=== PATIENT | female | born 1945 | race Caucasian/White ===

== ENCOUNTER 2017-04-01 09:30 | Inpatient (IN) | payer MEDICARE, OTHER ==
--- NOTE | ~2017-04-01 | CO ---
Unit #: [id number] #: [id number] Patient: YOLA FELIPE [id number] [address] [place], [place] [address] [id number] MR#: [id number] NAME: YOLA FELIPE ROOM: [facility] Age: 72 Sex: F Admission Date: 04/01/2017 : 1945 Attending Physician: Jeff Hamilton M.D. Primary Care Physician: Suhas Lopez M.D. Consultation Date: 04/01/2017 CONSULTATION REPORT REASON FOR CONSULTATION COPD. HISTORY OF PRESENT ILLNESS A 72-year-old female, well known to me, who has advanced emphysema, chronic respiratory failure, and problems with mucus plugs. She has undergone multiple bronchoscopies last in 10/2016, which revealed MRSA. She was doing relatively well until approximately 2 or 3 weeks ago. She presented to her primary physician's office, treated appropriately with antibiotics and steroids, but failed to improve. Then, went to [facility], records are unavailable, and again was treated with steroids and antibiotics. It appears that she was treated with Keflex. She again failed to improve room and because multiple outpatient failures, she was admitted to the hospital. She did have mucopurulent sputum, but now she says "I can't get it up." She has had wheezing, shortness of breath. She denies chest pain or hemoptysis or fever. PAST MEDICAL HISTORY As above and chronic respiratory failure, COPD, coronary artery disease, anxiety, depression, diabetes, hypothyroidism. MEDICATIONS At home, she is on Symbicort two puffs b.i.d., Spiriva one capsule inhaled daily, and albuterol as needed. Other medications per med rec sheet include MiraLAX p.r.n.; Daliresp; although, it is unclear if she is taking that or not; Desyrel; nystatin; Glucophage; Flonase; hydrocodone; Claritin; Symbicort. ALLERGIES No known medical allergies. SOCIAL HISTORY She is a reformed tobacco user. FAMILY HISTORY No familial lung disease. REVIEW OF SYSTEMS No chest pain or palpitations. She has chronic abdominal discomfort. She says "I am old." No nausea, vomiting, diarrhea. No trouble swallowing. No hematuria, dysuria. No focal weakness or paresthesias. No leg pain or swelling. No fever, chills, or weight loss. Further review of systems negative. Unit #: [id number] #: [id number] Patient: YOLA FELIPE PHYSICAL EXAMINATION VITAL SIGNS: Reveals the patient, who is afebrile. Pulse 76, respiratory rate is 20, blood pressure is 135/79. She is 5 feet 5 inches, 136 pounds. HEENT: Pupils are equal, round, and reactive to light. Sclerae anicteric. Head atraumatic. NECK: Supple. No supraclavicular or cervical adenopathy appreciated. Mucous membranes moist. Mallampati class IV oropharynx. She has dentures in place. CHEST: Decreased breath sounds. Prolonged expiratory phase. Rare wheeze. No consolidation. CARDIAC: Reveals distant heart tones. Regular rate and rhythm. No murmur, rub, or gallop. ABDOMEN: Soft and nontender. No hepatomegaly or rebound. EXTREMITIES: Reveal no clubbing, cyanosis, or edema. No calf tenderness. SKIN: Multiple bruises in a nondiagnostic pattern. No acute rash. DIAGNOSTIC STUDIES IMAGING STUDIES: Chest x-ray; hyperinflation. CT scan; emphysema, some right lower lobe bronchiectasis. No acute changes otherwise. LABORATORY RESULTS: Her glucose is 363, BUN is 24, creatinine 0.7. White blood cell count 10.7, hemoglobin 13, platelet count 166. No eosinophilia. Blood cultures performed and are pending. Sputum from bronchoscopy; MRSA sensitive to vancomycin, doxycycline, and Bactrim. CARDIOVASCULAR STUDIES: EKG; sinus rhythm, some baseline artifact. I do not see any definite acute ischemic changes. IMPRESSION 1. Acute exacerbation of chronic obstructive pulmonary disease. Failed multiple outpatient treatments, suspect underlying methicillin-resistant Staphylococcus aureus bronchitis. 2. Bronchiectasis of right lower lobe, appear stable. 3. Chronic respiratory failure. 4. Coronary artery disease, diabetes, hypothyroidism, etc. PLAN IV steroids, but we will trial most effective dose given her diabetes and hyperglycemia. Antibiotics for methicillin-resistant Staphylococcus aureus. If responds, consider transition to either doxycycline or Bactrim. Nebulized bronchodilators, oxygen, and we will try a percussive Vest. Thank you very much for allowing me to participate in the care of Ms. Felipe. Dictated by... Mayur Deluna/benji TD: 04/02/2017 01:59 JOB #: [id number] Unit #: [id number] #: [id number] Patient: YOLA FELIPE CONSULTATION REPORT Page 1 of 1 X Prem Bailey MD CONSULTATION REPORT
--- NOTE | ~2017-04-01 | DS ---
Unit #: [id number] #: [id number] Patient: YOLA FELIPE [id number] [facility]. [place], [place] [address] [id number] I MR#: [id number] NAME: YOLA FELIPE ROOM: 305 Age: 72 Sex: F Admission Date: 04/01/2017 : 1945 Discharge Date: 04/04/2017 Attending Physician: Jeff Hamilton M.D. Primary Care Physician: Suhas Lopez M.D. DISCHARGE SUMMARY REASON FOR ADMISSION Acute hypoxic respiratory failure, chronic obstructive pulmonary disease exacerbation. HISTORY OF PRESENT ILLNESS/HOSPITAL COURSE Please see history and physical for complete details of initial part of hospital stay. The patient was seen outside the facility and noted to have acute hypoxic respiratory failure secondary to chronic obstructive pulmonary disease exacerbation and was subsequently transferred to [facility] for ongoing evaluation. Consultation was placed with Dr. Bailey of pulmonary services. The patient underwent a CT scan without contrast on 03/31/2017 for consideration of possible underlying pneumonia. His initial chest x-ray raised that possibility at outside facility. There was moderately severe bilateral emphysema which was noted but there was no acute or active disease which was noted. She was appropriately placed on IV Solu-Medrol aerosols, antibiotics, per the discretion of pulmonary services. Blood cultures did not yield any acute bacteria growth. MRSA nasal swab was positive. Today, at the time of discharge, the patient's creatinine 0.8, hemoglobin 12.9. She appears close to her baseline. She does have end-stage chronic obstructive pulmonary disease and is currently maintained on two liters while at home. She was instructed to follow up with Dr. Bailey as an outpatient in approximately one-to-two weeks. It should be noted that her hemoglobin A1c was 8.3 through this hospital course and secondary to elevated blood sugars from Solu-Medrol. She was maintained on appropriate sliding scale. FINAL DISCHARGE DIAGNOSES 1. Acute hypoxic respiratory failure. 2. Acute exacerbation of chronic obstructive pulmonary disease. 3. Imgfgxzp-jo-ncfpar emphysema. 4. End-stage chronic obstructive pulmonary disease on home O2 at two liters. Unit #: [id number] #: [id number] Patient: MATTEO,ZEFFA 5. Chronic pain syndrome. 6. Generalized anxiety disorder. 7. Prior history of back surgery x5 with resulting chronic pain syndrome. 8. Failure to thrive. 9. Coronary artery disease. 10. Diabetes, poorly controlled. 11. Hyperlipidemia. 12. Hypertension. 13. Hypothyroidism. 14. Allergic rhinitis. FINAL DISCHARGE MEDICATIONS 1. Proventil inhalation solution q.6h p.r.n. 2. Symbicort 160/4.5 two puffs b.i.d. 3. Prednisone 40 mg p.o. q.a.m. x4 days 4. Doxycycline 100 mg one tablet p.o. b.i.d. x5 days 5. Gentamicin eye drops q.6h as directed 6. Flonase 1-2 squirts each nostril daily 7. Spiriva one inhalation daily 8. Trazodone 100 mg p.o. q.h.s. 9. Glucophage 500 mg p.o. b.i.d. 10. Nystatin 5 mL p.o. q.6 p.r.n. 11. Claritin 10 mg p.o. daily 12. MiraLAX 17 grams daily 13. Printer 5/825 one tablet p.o. q.6 p.r.n. (this is a home medication no new prescription given) 14. Daliresp 500 mcg p.o. daily DISCHARGE CONDITION Stable. DISCHARGE DISPOSITION Home. FOLLOWUP 1. Follow up with Dr. Kearney in one-to-two weeks. 2. Follow up with primary care physician in epgeh-qu-cjz days. Dictated by... Mayur Mercado/ash TD: 04/04/2017 11:27 JOB #: [id number] DISCHARGE SUMMARY Page 1 of 1 X Jeff Hamilton MD X DISCHARGE SUMMARY
--- NOTE | ~2017-04-01 | CT57 ---
[facility] A Service of [facility] RADIOLOGY TEXT RESULTS PATIENT: YOLA FELIPE LOCATION: [facility] - : [birth year] UNIT #: [id number] AGE: [address]: Garrison Lemus MD SEX: F ORDER DR: [id number] [facility]. [place], [place] [address] [id number] I MR#: [id number] Acc #: [id number] NAME: YOLA FELIPE : 1945 SEX: F STUDY DATE/TIME: 03/31/2017 20:45 UNIT: [address] ROOM: [facility] STUDY DESCRIPTION: CT Chest Wo Cont Attending Physician: Garrison Lemus M.D. Ordering Physician: Garrison Lemus M.D. Primary Care Physician: Suhas Lopez M.D. MEDICAL IMAGING REPORT This report is preliminary unless electronic signature is present EXAM CT chest without contrast HISTORY COPD and shortness of air for 2 days. Respiratory failure. This CT exam was performed with one or more of the following radiation dose reduction techniques: automatic exposure control, adjustment of mA and/or kV according to patient size, and iterative reconstruction. FINDINGS CT chest without contrast demonstrates moderately severe bilateral emphysema. A 1.5 cm lung cyst in the right apex. Scattered linear fibrotic scarring in both lungs. Mild bronchiectasis in the posterior and inferior right lower lobe. No airspace infiltrates. No pleural effusions. No adenopathy. Normal caliber thoracic aorta. IMPRESSION 1. Moderately severe bilateral emphysema. 2. No evidence of active disease. 3. Scattered linear fibrotic scarring in both lungs, greater in the right lower lobe and mild bronchiectasis in the right lower lobe. Dictated by... Petar Collado M.D. THIS IS AN ELECTRONICALLY VERIFIED REPORT Petar Collado M.D. at 04/01/2017 1:58 PM DAR/dale TD: 04/01/2017 05:01 [facility] A Service of [facility] RADIOLOGY TEXT RESULTS PATIENT: YOLA FELIPE LOCATION: [facility] 305-01 : [birth year] UNIT #: [id number] AGE: [address]: Garrison Lemus MD SEX: F ORDER DR: ZEB #: [id number] MEDICAL IMAGING REPORT Page 1 of 1 COPY
--- NOTE | ~2017-04-01 | HP ---
Unit #: [id number] #: [id number] Patient: YOLA FELIPE [id number] [facility]. [place], [place] [address] [id number] I MR#: [id number] NAME: YOLA FELIPE ROOM: 305 Age: 72 Sex: F Admission Date: 04/01/2017 : 1945 Attending Physician: Garrison Lemus M.D. Primary Care Physician: Suhas Lopez M.D. HISTORY AND PHYSICAL REASON FOR ADMISSION Acute hypoxic respiratory failure. HISTORY OF PRESENT ILLNESS The patient is a very pleasant, 72-year-old female usually followed by Dr. Bailey of Pulmonary Services, who states that over the past seven days she has had progressive dyspnea as well as increased cough, congestion. She was seen and evaluated at [facility] as an outpatient, noted to have increased oxygen requirements as well as chest pressure. Therefore, she was transferred to [facility] for ongoing evaluation. At the present time, she is currently on approximately five liters. She states that she would like Dr. Bailey to come and evaluate her in regards to her overall respiratory status. PAST MEDICAL HISTORY COPD, quit smoking approximately 20 years ago after smoking approximately two packs of cigarettes per day, home O2 dependent at approximately two to three liters, chronic pain syndrome, generalized anxiety disorder, prior history of hysterectomy, appendectomy, prior history of back surgery x5, chronic pain syndrome, tonsillectomy, failure to thrive, chronic shoulder bursitis, coronary artery disease, details unclear, diabetes, emphysema, eustachian tube dysfunction, hyperlipidemia, hypertension, hypothyroidism, allergic rhinitis. PAST SURGICAL HISTORY Please see above. SOCIAL HISTORY Negative alcohol use. Negative tobacco use currently. Former reformed smoker, approximately two packs of cigarettes per day for approximately 40 years, a 80-pack year smoking history. No illicit drug use. FAMILY HISTORY Reviewed. Negative and noncontributory. REVIEW OF SYSTEMS Please see HPI. A 12-point otherwise negative except for those positive noted in the HPI. PHYSICAL EXAMINATION GENERAL APPEARANCE: The patient is alert, oriented, mildly using accessory muscles. VITAL SIGNS: Temperature at outlying facility 97.7. Pulse 109. Respiratory rate 22. Blood pressure currently being assessed, pending. Unit #: [id number] #: [id number] Patient: YOLA FELIPE SKIN: Warm dry. HEAD: Atraumatic, normocephalic. NECK: Supple. Mild accessory muscle use noted. No JVD. No carotid bruit. CARDIOVASCULAR: S1, S2 without murmur. Tachycardiac. RESPIRATORY: Coarse breath sounds are noted. Bilateral rhonchi. GASTROINTESTINAL/ABDOMEN: Nontender, nondistended. EXTREMITIES: Lower extremities have no evidence of lower extremity edema. NEUROLOGIC: Patient alert and oriented x3. No evidence of any focal neuro deficits. DIAGNOSTIC STUDIES LABORATORY: Initial laboratory studies at outside facility include a pH of 7.47, pO2 of 67, pCO2 of 32. BMP unremarkable. LFTs unremarkable. White count 16,000. INITIAL ADMISSION DIAGNOSES 1. Acute hypoxic respiratory failure. 2. COPD exacerbation. 3. End-stage COPD. 4. Remote history of tobacco abuse. 5. Leukocytosis. 6. Failure to thrive. 7. Remote history of coronary artery disease. Details unclear. PLAN Admission telemetry floor. Consultation will be placed to Pulmonary Services. IV Solu-Medrol. Aerosols. CT chest. Routine hospital course. We will begin checking routine Accu-Cheks q.a.c. and q.h.s. The patient states that she has been told in the past that she may have diabetes and that she currently takes Glucophage for but she is not sure if she is a true diabetic or not. She is FULL CODE. Plans have been reviewed with patient in detail. Dictated by Mayur Mercado/mervat TD: 04/01/2017 12:44 JOB #: [id number] HISTORY AND PHYSICAL Page 1 of 1 X Jeff Hamilton MD X HISTORY AND PHYSICAL
[2017-04-01 05:21] LABS: HEMATOCRIT 40.7 % (35.0-45.0); MEAN CELL VOLUME 95.2 FL (83-96); MEAN CORPUSCULAR HEMOGLOBIN 30.5 PG (28-34); MEAN PLATELET VOLUME 8.4 FL (6.5-11.5); RED BLOOD COUNT 4.27 X10e (3.90-5.30); RED CELL DISTRIBUTION WIDTH 14.1 % (11.0-15.5); WHITE BLOOD COUNT 10.7 X10e3 (4.0-10.5)
[2017-04-01 07:08] LABS: ALBUMIN SERUM 3.1 g/dL (3.5-5.0); BILIRUBIN,TOTAL 0.4 mg/dL (0.2-2.0); BUN/CREATININE RATIO 34.28; CALCIUM SERUM 8.7 mg/dL (8.4-10.2); CREATININE SERUM 0.7 mg/dL (0.6-1.4); GLOM FILT RATE Estimated 85.4 mL/min (>60); POTASSIUM 4.4 mmol/L (3.5-5.1); PROTEIN TOTAL SERUM 6.2 g/dL (6.0-8.3)
[~2017-04-01 09:30] MED LIST: ACETAMINOPHEN PO; ACTOS PO; ALBUTEROL 0.5ML INH; ALBUTEROL MININEB NEB; ALBUTEROL17 GM INH; ALBUTEROL2.5 MG/0.5 IH; ALPRAZOLAM ER1 MG PO; ALPRAZOLAM PO; ALPRAZOLAM0.5 MG PO; AMOXICILLIN500 M1 PO; AUGMENTIN PO; AZITHROMYCIN250 MG PO; CIPRO PO; CLARITIN10 M2 PO; CLARITIN10 M3 PO; COMBIVENT MININEB INH; DALIRESP500 MCG DOB; DALIRESP500 MCG PO; DELTASONE20 MG PO; DESYREL100 MG PO; DIFLUCAN100 MG PO; DOXYCYCLINE150 MG PO; DYAZIDE 37.5/251 CAP PO; ESTRACE PO; FLEXERIL10 MG PO; FLOMAX0.4 M1 DOB; FLOMAX0.4 M1 PO; FLONASE ALLERG9.9 ML; FLUOROMETHOLONE5 ML OU; GENTAK5 ML AU; GLUCOPHAGE500 MG PO; GLYBURIDE2.5 MG PO; GLYCOLAX119 GM PO; HYDROCODON-ACE1 EAC2 PO; HYDROCODON-ACE1 EAC7 PO; HYDROCODON-ACE1 EAC9 PO; HYDROCODONE-A1 UDTA4 PO; JANUVIA PO; JANUVIA100 MG PO; KEFLEX500 MG PO; LEVAQUIN PO; LEVAQUIN750 M1 PO; LEVAQUIN750 MG PO; LEVOFLOXACIN500 MG PO; LEVOTHROID100 MC1 PO; LEVOTHYROXINE100 MCG PO; LEVOXYL75 MC1 PO; LORATADINE PO; MACROBID 100 M100 MG PO; MACROBID100 MG PO; MOTRIN600 MG PO; NITROFURANTOIN100 M3 PO; NITROFURANTOIN100 M4 PO; NOVOLIN R100 UNITS/ INJ; NYSTATIN5 ML PO; OMNICEF300 MG PO; PHENERGAN PO; PHENERGAN25 MG PO; PREDNISONE PO; PREDNISONE10 MG PO; PROMETHAZI6.25 MG/5 PO; PROMETHAZINE HC25 MG PO; PROTONIX PO; PROVENTIL0.83 MG/ML INH; PYRIDIUM PO; PYRIDIUM100 MG PO; RAPAFLO8 MG PO; ROBITUSSIN100 MG/51 PO; SPIRIVA18 MCG INH; SYMBICORT 160/4.6 G1 IH; SYMBICORT INH; SYNTHROID; SYNTHROID0.1 MG PO; TRAMADOL HCL50 M2 PO; TRAZODONE HCL100 MG; TRAZODONE HCL100 MG PO; TUSSIONEX PENN473 ML PO; VICODIN ES 7.51 EACH PO; ZYVOX600 MG PO; [UNRECOGNIZED DRUG - REMARK]; [UNRECOGNIZED DRUG - REMARK]
[2017-04-02 04:54] LABS: HEMATOCRIT 39.8 % (35.0-45.0); HEMOGLOBIN 12.9 gm/dL (12.0-16.0); MEAN CELL VOLUME 95.2 FL (83-96); MEAN CORPUSCULAR HEMOGLOBIN 30.8 PG (28-34); MEAN CORPUSCULAR HGB CONC 32.3 g/dL (30-36); MEAN PLATELET VOLUME 8.5 FL (6.5-11.5); RED BLOOD COUNT 4.18 X10e (3.90-5.30); RED CELL DISTRIBUTION WIDTH 13.8 % (11.0-15.5); WHITE BLOOD COUNT 10.7 X10e3 (4.0-10.5)
[2017-04-02 06:30] LABS: BUN/CREATININE RATIO 36.25; CALCIUM SERUM 8.7 mg/dL (8.4-10.2); CREATININE SERUM 0.8 mg/dL (0.6-1.4); GLOM FILT RATE Estimated 72.7 mL/min (>60); POTASSIUM 4.3 mmol/L (3.5-5.1)
[2017-04-04] MEDS ORDERED: PREDNISONE (09:55)
[2017-04-04] MEDS ORDERED: DOXYCYCLINE HY100 M3 PO (09:58)
[2017-05-21] MEDS ORDERED: MEDROL DOSEPAK4 MG PO (16:21)
[2017-05-29] MEDS ORDERED: DALIRESP500 MCG DOB (08:25)
[2017-05-29] MEDS ORDERED: XARELTO15 MG PO (08:27)
[2017-05-29] MEDS ORDERED: SYMBICORT 16010.2 GM INH (08:28)
[2017-05-29] MEDS ORDERED: TRAZODONE HCL100 MG PO (08:28)
[2017-05-29] MEDS ORDERED: BENZONATATE PO (17:07)
[2017-05-29] MEDS ORDERED: SYMBICORT INH (17:07)
[2017-05-29] MEDS ORDERED: ALBUTEROL MININEB NEB (17:07)
[2017-05-29] MEDS ORDERED: FLONASE 0.05% N16 G1 (17:08)
[2017-05-29] MEDS ORDERED: COMBIVENT U/D3 M2 INH (17:10)
== END 2017-04-04 14:58 | disposition home or self-care (01) | DRG 189 ==
LOC: C3A PCU 09:30
PROVIDERS: Family Medicine; Internal Medicine
DX: J96.01 Acute respiratory failure with hypoxia (principal); J44.0 Chronic obstructive pulmonary disease with (acute) lower respiratory infection; Z99.81 Dependence on supplemental oxygen; E11.65 Type 2 diabetes mellitus with hyperglycemia; J44.1 Chronic obstructive pulmonary disease with (acute) exacerbation; J20.2 Acute bronchitis due to streptococcus; Z87.891 Personal history of nicotine dependence; J96.10 Chronic respiratory failure, unspecified whether with hypoxia or hypercapnia; G89.4 Chronic pain syndrome; F41.1 Generalized anxiety disorder; R62.7 Adult failure to thrive; I25.10 Atherosclerotic heart disease of native coronary artery without angina pectoris; Z79.84 Long term (current) use of oral hypoglycemic drugs; E78.5 Hyperlipidemia, unspecified; I10 Essential (primary) hypertension; E03.9 Hypothyroidism, unspecified; J30.9 Allergic rhinitis, unspecified; D72.829 Elevated white blood cell count, unspecified; F32.9 Major depressive disorder, single episode, unspecified; Z90.710 Acquired absence of both cervix and uterus
CPT/HCPCS: 71250; 80048; 80053; 80202; 82607; 82947; 83036; 84443; 85027; 87040; 87070; 87205; 94640; 94664; 94668; 94760; C9113; J0456; J0696; J1170; J1815; J2405; J2920; J2930; J3370; J3420

== ENCOUNTER 2017-04-19 15:55 | Emergency (ER) | payer MEDICARE, OTHER ==
[~2017-04-19 15:55] MED LIST changes: +DOXYCYCLINE HY100 M3 PO; +PREDNISONE
[2017-04-19] MEDS ORDERED: CLOTRIMAZOLE-BE30 M1 TOP (17:07)
[2017-04-19] MEDS ORDERED: LASIX20 MG PO (17:08)
[2017-04-19] MEDS ORDERED: GARAMYCIN (17:09)
[2017-04-19] MEDS ORDERED: HYDROCODON-ACE1 EAC7 PO (17:10)
[2017-04-19] MEDS ORDERED: CLARITIN10 M3 PO (17:10)
[2017-04-19] MEDS ORDERED: EYE DROPS15 M1 OU (17:11)
[2017-04-19] MEDS ORDERED: GLUCOPHAGE500 MG PO (17:11)
[2017-04-19] MEDS ORDERED: POTASSIUM CHLO10 ME1 PO (17:13)
[2017-04-19] MEDS ORDERED: PHENERGAN25 M1 PO (17:13)
[2017-04-19] MEDS ORDERED: GLYCOLAX119 GM PO (17:13)
[2017-05-21] MEDS ORDERED: MEDROL DOSEPAK4 MG PO (16:21)
[2017-05-29] MEDS ORDERED: DALIRESP500 MCG DOB (08:25)
[2017-05-29] MEDS ORDERED: XARELTO15 MG PO (08:27)
[2017-05-29] MEDS ORDERED: SYMBICORT 16010.2 GM INH (08:28)
[2017-05-29] MEDS ORDERED: TRAZODONE HCL100 MG PO (08:28)
[2017-05-29] MEDS ORDERED: SYMBICORT INH (17:07)
[2017-05-29] MEDS ORDERED: BENZONATATE PO (17:07)
[2017-05-29] MEDS ORDERED: ALBUTEROL MININEB NEB (17:07)
[2017-05-29] MEDS ORDERED: FLONASE 0.05% N16 G1 (17:08)
[2017-05-29] MEDS ORDERED: COMBIVENT U/D3 M2 INH (17:10)
== END 2017-04-19 18:45 | disposition home or self-care (01) ==
LOC: CED 15:55
DX: I80.222 Phlebitis and thrombophlebitis of left popliteal vein (principal); E11.9 Type 2 diabetes mellitus without complications; J44.9 Chronic obstructive pulmonary disease, unspecified; F41.9 Anxiety disorder, unspecified; I10 Essential (primary) hypertension; E78.5 Hyperlipidemia, unspecified; Z79.899 Other long term (current) drug therapy
CPT/HCPCS: 93971; 99284

== ENCOUNTER → 2017-05-29 | Day surgery (SDC) | payer MEDICARE, OTHER ==
[~2017-05-29] MED LIST changes: +BENZONATATE PO; +CLOTRIMAZOLE-BE30 M1 TOP; +COMBIVENT U/D3 M2 INH; +EYE DROPS15 M1 OU; +FLONASE 0.05% N16 G1; +GARAMYCIN; +LASIX20 MG PO; +MEDROL DOSEPAK4 MG PO; +PHENERGAN25 M1 PO; +POTASSIUM CHLO10 ME1 PO; +SYMBICORT 16010.2 GM INH; +XARELTO15 MG PO
--- NOTE | ~2017-05-29 | OR ---
Unit #: [id number] #: [id number] Patient: YOLA FELIPE [id number] [address] [address] [id number] O MR#: [id number] NAME: YOLA FELIPE ROOM: Date of Procedure: 05/29/2017 Admission Date: 05/29/2017 Surgeon: Prem Bailey M.D. : 1945 Attending Physician: Prem Bailey M.D. Primary Care Physician: Suhas Lopez M.D. OPERATIVE REPORT PROCEDURE PERFORMED Flexible fiberoptic bronchoscopy. SEDATION General anesthesia with Dr. Stallings. FINDINGS Mucus plugs, right greater than left, some very thick. No endobronchial lesions were seen. COMPLICATION Zero. CONDITION AFTER PROCEDURE Stable to recovery room. DESCRIPTION OF PROCEDURE The patient was brought to the endoscopy suite and monitored for heart rate, blood pressure, saturations, and end-tidal CO2, etc. After discussion with Dr. Stallings, it was decided that it would be safest for deeper sedation and protection of airway. She was sedated and intubated with 7.5 ET tube. Please see their notes for details of anesthesia. She was anesthetized with 2% lidocaine down her ET tube. Bronchoscope was introduced. Mucus was encountered almost immediately. Mucus was primarily in the right lower lobe. Her airways were lightly anesthetized. Bronchoscope had to be removed multiple times to clear the suction port. No endobronchial lesions were seen. There was evidence of chronic bronchitis, but no tumor. Bronchoscope was removed without difficulty. The specimens will be sent for cytopathology, fungus, bacterial cultures and Gram stain. Dictated by... Mayur Deluna/guillaumel TD: 05/30/2017 00:34 JOB #: [id number] CC: Suhas Lopez M.D. Unit #: [id number] #: [id number] Patient: YOLA FELIPE OPERATIVE REPORT Page 1 of 1 X Prem Bailey MD PROCEDURE OPERATIVE NOTE
[2017-05-29 08:33] LABS: BASOPHIL% 0.6 % (0-2.5); DIFF IND YES; EOSINOPHIL# 0.1 X10e3 (0-0.7); EOSINOPHIL% 1.5 % (0.0-7.0); HEMATOCRIT 34.5 % (35.0-45.0); HEMOGLOBIN 11.5 gm/dL (12.0-16.0); LYMPHOCYTE# 1.8 X10e3 (1.0-3.5); LYMPHOCYTE% 25.1 % (17.0-45.0); MEAN CELL VOLUME 94.3 FL (83-96); MEAN CORPUSCULAR HEMOGLOBIN 31.4 PG (28-34); MEAN CORPUSCULAR HGB CONC 33.3 g/dL (30-36); MEAN PLATELET VOLUME 8.3 FL (6.5-11.5); MONOCYTE# 0.5 X10e3 (0-1.0); MONOCYTE% 6.6 % (3.0-12.0); NEUTROPHIL# 4.8 X10e3 (1.5-7.1); NEUTROPHIL% 66.2 % (40-75); PLATELET COUNT 261 X10e3 (140-420); RED BLOOD COUNT 3.66 X10e (3.90-5.30); RED CELL DISTRIBUTION WIDTH 15.9 % (11.0-15.5); WHITE BLOOD COUNT 7.2 X10e3 (4.0-10.5)
[2017-05-29 08:41] LABS: INR 0.9; PARTIAL THROMBOPLASTIN TIME 22.6 SECONDS (23.5-31.3); PROTHROMBIN TIME (PATIENT) 10.1 SECONDS (10.0-11.7)
[2017-05-29 09:17] LABS: PLATELET ESTIMATE NORMAL (NORMAL)
[2017-05-29 09:18] LABS: ANISOCYTOSIS SL
== END | disposition home or self-care (01) ==
LOC: COPS 07:16
PROVIDERS: Internal Medicine
DX: T17.590A Other foreign object in bronchus causing asphyxiation, initial encounter (principal); J45.909 Unspecified asthma, uncomplicated; J43.9 Emphysema, unspecified; E03.9 Hypothyroidism, unspecified; Z88.1 Allergy status to other antibiotic agents; I10 Essential (primary) hypertension; I25.10 Atherosclerotic heart disease of native coronary artery without angina pectoris; G89.29 Other chronic pain; E11.9 Type 2 diabetes mellitus without complications; J96.11 Chronic respiratory failure with hypoxia; Z87.891 Personal history of nicotine dependence; Z87.01 Personal history of pneumonia (recurrent); Z86.718 Personal history of other venous thrombosis and embolism; Z87.440 Personal history of urinary (tract) infections; Z79.51 Long term (current) use of inhaled steroids; Z79.84 Long term (current) use of oral hypoglycemic drugs; Z79.01 Long term (current) use of anticoagulants; Z79.891 Long term (current) use of opiate analgesic; Z79.899 Other long term (current) drug therapy; Z90.711 Acquired absence of uterus with remaining cervical stump; Z90.49 Acquired absence of other specified parts of digestive tract; Z98.890 Other specified postprocedural states; X58.XXXA Exposure to other specified factors, initial encounter
CPT/HCPCS: 82947; 85025; 85610; 85730; 87070; 87102; 87106; 87205; 87206; 88108; 88305; J0171; J0330; J3010